=== PATIENT | female | born 1990 | race Caucasian/White ===

== ENCOUNTER 2021-09-19 23:00 | Inpatient (IN) | payer MEDICAID, SELFPAY ==
[2021-09-19 23:23] VITALS: BP 131/63; PULSE 95; RESP 18; TEMP 36.8; O2SAT 98
[2021-09-19 23:29] VITALS: BMI 26.6
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
[2021-09-20 05:04] VITALS: BP 122/75; PULSE 61; RESP 16; TEMP 36.8; O2SAT 98
[2021-09-20] MEDS: thiamine 100 mg Tablet PO (08:48)
[2021-09-20] MEDS: folic acid 1 mg Tablet PO (08:48)
[2021-09-20] MEDS: multivitamin therapeutic Tablet 1 TAB PO (08:49)
--- NOTE | 2021-09-20 09:42 | PC.NURSE ---
PT HAS REMAINED IN BED RESTING WITH EYES CLOSED. DID NOT GET UP TO EAT BREAKFAST. WHEN WAKEN, ANSWERS ASSESSMENT QUESTIONS APPROPRIATELY BUT WITH YES NOT ANSWERS. DENIES AVH OR SI/HI. DENIES ANY NV, TREMORS OR OTHER WITHDRAW SYMPTOMS.
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
[2021-09-20] MEDS: blistex lip oint 7 gm Tube 1 APPLIC TOPICAL (12:06)
--- NOTE | 2021-09-20 12:39 | NPU.GN ---
[facility] Unit Group Topic:Dice Breaker General Mood of Group Patient did not attend group today.
[2021-09-20 14:00] VITALS: BP 116/56; PULSE 62; RESP 17; TEMP 36.7; O2SAT 99
[2021-09-20] MEDS: trazodone 50 mg Tablet 100 MG PO (21:23)
[2021-09-20 21:29] VITALS: RESP 18
[2021-09-21 06:00] VITALS: RESP 16
[2021-09-21] MEDS: multivitamin therapeutic Tablet 1 TAB PO (08:26)
[2021-09-21] MEDS: folic acid 1 mg Tablet PO (08:26)
[2021-09-21] MEDS: thiamine 100 mg Tablet PO (08:26)
--- NOTE | 2021-09-21 10:54 | NPU.GN ---
[facility] Unit Group Topic: Gurinder Diaz General Mood of Group: Patient did not attend group today. Patient was sleeping.
[2021-09-21] MEDS: OLANZapine 5 mg ODT PO (12:17)
[2021-09-21 14:00] VITALS: BP 125/77; PULSE 102; RESP 18; TEMP 36.7; O2SAT 99
[2021-09-21] MEDS: escitalopram 10 mg Tablet PO (15:49)
--- NOTE | 2021-09-21 17:50 | W.PM.NPUPNS ---
Subjective NPU Subjective: Patient presents today reporting that she is doing okay. She reports that she has been working with the treatment team on a plan for getting her to a rehab. She reports that the Seroquel at night has been helpful and she is tolerating restarting Lexapro 10 mg p.o. every morning. We discussed the programs that they contacted and being hopeful that something is available by Friday. Mental Status Exam MSE Comments: This is a well-nourished well-developed -[place] Korean female with reddish hair in hospital scrubs with adequate grooming and eye contact. No abnormal movements except for mild psychomotor retardation. Cooperative with exam in mild distress. Speech was normal rate and volume. Mood described as depressed but slightly hopeful that things might turn around with a rehab plan, affect slightly subdued. Thought process organized. Thought contact: patient denies suicidal or homicidal ideation, there were no delusions reported or noted, patient denied auditory or visual hallucinations. Attention and concentration appeared intact and memory appeared reliable but none were formally tested. Patient is alert and oriented times three. Insight and judgment appear fair and impulse control appears limited. Vitals/I&O/Wt Last Vital Signs Temp 98.1 F 09/21/21 14:00 Pulse 102 H 09/21/21 14:00 Resp 18 09/21/21 14:00 BP 125/77 09/21/21 14:00 Pulse Ox 99 09/21/21 14:00 A&P Assessment and plan (1) Suicidal ideation: Status: Acute (2) History of ADHD: Status: Acute (3) History of posttraumatic stress disorder (PTSD): Status: Acute (4) Major depressive disorder, recurrent: Status: Acute (5) Alcohol use disorder, severe, dependence: Status: Acute Plan his is a 31-year-old female with a long history of mental health issues and trauma with current past alcohol use disorder presents for medication but open to treatment. 1.? Continue current medication.? Started Lexapro in a.m. and Seroquel 100 mg p.o. nightly. 2.? Continue every 15 minute checks for safety. 3.? Encourage individual, group and milieu therapies. 4.? Encourage sober living treatment after discharge at the highest level of care to which he is willing to commit. She is working with treatment team on rehab options. Involuntary Hold Information 96 Hour Hold: 96 Hour Involuntary Admission: No Attestations NPU Medical Necessity Statement*: Inpatient hospitalization is medically necessary and the clinically appropriate intervention at this time. We will monitor medication to make changes as indicated. Likely length of stay 3 to 5 days. Coding Level of Care Code Acute Foreign Legal Consultant for [facility] Fwd Diagnoses Suicidal ideation R45.851 History of ADHD Z86.59 History of posttraumatic stress disorder (PTSD) Z86.59 Major depressive disorder, recurrent F33.9 Alcohol use disorder, severe, dependence F10.20
[2021-09-21] MEDS: quetiapine 100 mg Tablet PO (20:35)
[2021-09-21 20:42] VITALS: BP 120/65; PULSE 68; RESP 18; O2SAT 96
[2021-09-22 05:58] VITALS: BP 108/69; PULSE 64; RESP 16; O2SAT 96
[2021-09-22] MEDS: thiamine 100 mg Tablet PO (08:11)
[2021-09-22] MEDS: escitalopram 10 mg Tablet PO (08:11)
[2021-09-22] MEDS: multivitamin therapeutic Tablet 1 TAB PO (08:11)
[2021-09-22] MEDS: folic acid 1 mg Tablet PO (08:12)
--- NOTE | 2021-09-22 13:20 | W.PM.NPUPNS ---
Subjective NPU Subjective: Patient presents reporting that she is changing her withdrawal really well without any major challenges. She reports that she is continue to focus on a plan to go to rehab and try to get things back on track. She reports an openness to sober living treatment and plan to get her life back in order. She reports it is challenging because of going through withdrawal dealing with some of the psychotic people on the unit but she is focused on her goal of recovery. Mental Status Exam MSE Comments: This is a well-nourished well-developed -Dominican female with reddish hair in hospital scrubs with adequate grooming and eye contact. No abnormal movements except for mild psychomotor retardation. Cooperative with exam in no acute distress. Speech was normal rate and volume. Mood described as better, affect slightly subdued. Thought process organized. Thought contact: patient denies suicidal or homicidal ideation, there were no delusions reported or noted, patient denied auditory or visual hallucinations. Attention and concentration appeared intact and memory appeared reliable but none were formally tested. Patient is alert and oriented times three. Insight and judgment appear fair and impulse control appears limited. Vitals/I&O/Wt Last Vital Signs Temp 98.1 F 09/21/21 14:00 Pulse 64 09/22/21 05:58 Resp 16 09/22/21 05:58 BP 108/69 09/22/21 05:58 Pulse Ox 96 09/22/21 05:58 A&P Assessment and plan (1) Suicidal ideation: Status: Acute (2) History of ADHD: Status: Acute (3) History of posttraumatic stress disorder (PTSD): Status: Acute (4) Major depressive disorder, recurrent: Status: Acute (5) Alcohol use disorder, severe, dependence: Status: Acute Plan This is a 31-year-old female with a long history of mental health issues and trauma with current past alcohol use disorder presents for medication but open to treatment. 1.? Continue current medication.? Started Lexapro in a.m. and Seroquel 100 mg p.o. nightly. 2.? Continue every 15 minute checks for safety. 3.? Encourage individual, group and milieu therapies. 4.? Encourage sober living treatment after discharge at the highest level of care to which he is willing to commit.? She is working with treatment team on rehab options. Involuntary Hold Information 96 Hour Hold: 96 Hour Involuntary Admission: No Attestations NPU Medical Necessity Statement*: Inpatient hospitalization is medically necessary and the clinically appropriate intervention at this time. We will monitor medication to make changes as indicated. Likely length of stay 2-4 days. Coding Level of Care Code Acute Computer Graphics Illustrator for g Fwd Diagnoses Suicidal ideation R45.851 History of ADHD Z86.59 History of posttraumatic stress disorder (PTSD) Z86.59 Major depressive disorder, recurrent F33.9 Alcohol use disorder, severe, dependence F10.20
[2021-09-22 14:00] VITALS: BP 118/68; PULSE 84; RESP 16; TEMP 36.4; O2SAT 98
[2021-09-22] MEDS: hyDROXYzine 25 mg Capsule 50 MG PO (19:07)
--- NOTE | 2021-09-22 19:14 | PC.NURSE ---
PRN Medications Up to nurses station requesting something for anxiety. Administered 50 mg of Vistaril as ordered. Will pass on to material handler 1st shift to monitor the effectiveness of medication.
[2021-09-22] MEDS: quetiapine 100 mg Tablet PO (20:38)
[2021-09-22 20:56] VITALS: BP 123/83; PULSE 87; RESP 17; TEMP 37.2; O2SAT 97
[2021-09-23 02:42] VITALS: BMI 26.6
[2021-09-23 06:00] VITALS: BP 118/78; PULSE 80; RESP 16; TEMP 36.6; O2SAT 98
--- NOTE | 2021-09-23 09:20 | P.NPUPN_ITS ---
Subjective NPU Subjective: Patient presents today reporting that the medication is working well can be expected at this point. She denies any side effects of the medication reports he is eating well and sleeping better with the Seroquel. She continues to endorse a commitment to sober living treatment and a plan to work with the treatment team on Friday towards that end. Mental Status Exam MSE Comments: This is a well-nourished well-developed -Dominican female with reddish hair in hospital scrubs with adequate grooming and eye contact. No abnormal movements except for mild psychomotor retardation. Cooperative with exam in no acute distress. Speech was normal rate and volume. Mood described as better, affect slightly subdued. Thought process organized. Thought contact: patient denies suicidal or homicidal ideation, there were no delusions reported or noted, patient denied auditory or visual hallucinations. Attention and concentration appeared intact and memory appeared reliable but none were formally tested. Patient is alert and oriented times three. Insight and judgment appear fair and impulse control appears limited. Vitals/I&O/Wt Last Vital Signs Temp 97.9 F 09/23/21 06:00 Pulse 80 09/23/21 06:00 Resp 16 09/23/21 06:00 BP 118/78 09/23/21 06:00 Pulse Ox 98 09/23/21 06:00 Weight last 48 hrs Weight 77.281 kg A&P Assessment and plan (1) Suicidal ideation: Status: Acute (2) History of ADHD: Status: Acute (3) History of posttraumatic stress disorder (PTSD): Status: Acute (4) Major depressive disorder, recurrent: Status: Acute (5) Alcohol use disorder, severe, dependence: Status: Acute Plan This is a 31-year-old female with a long history of mental health issues and trauma with current past alcohol use disorder presents for medication but open to treatment. 1.? Continue current medication.? Started Lexapro in a.m. and Seroquel 100 mg p.o. nightly. 2.? Continue every 15 minute checks for safety. 3.? Encourage individual, group and milieu therapies. 4.? Encourage sober living treatment after discharge at the highest level of care to which he is willing to commit.? She is working with treatment team on rehab options.? Involuntary Hold Information 96 Hour Hold: 96 Hour Involuntary Admission: No Attestations NPU Medical Necessity Statement*: Inpatient hospitalization is medically necessary and the clinically appropriate intervention at this time. We will monitor medication to make changes as indicated. Likely length of stay 1-3 days. Coding Level of Care Code Acute Welder Boilermaker for [facility]g Fwd Diagnoses Suicidal ideation R45.851 History of ADHD Z86.59 History of posttraumatic stress disorder (PTSD) Z86.59 Major depressive disorder, recurrent F33.9 Alcohol use disorder, severe, dependence F10.20
[2021-09-23] MEDS: escitalopram 10 mg Tablet PO (09:40)
[2021-09-23] MEDS: thiamine 100 mg Tablet PO (09:40)
[2021-09-23] MEDS: folic acid 1 mg Tablet PO (09:40)
[2021-09-23] MEDS: multivitamin therapeutic Tablet 1 TAB PO (09:40)
[2021-09-23 14:00] VITALS: BP 108/69; PULSE 80; RESP 17; TEMP 36.6; O2SAT 98
[2021-09-23] MEDS: quetiapine 100 mg Tablet PO (20:09)
[2021-09-23 20:10] VITALS: BP 123/85; PULSE 93; RESP 17; TEMP 37.2; O2SAT 98
[2021-09-24 06:00] VITALS: BP 106/56; PULSE 80; RESP 17; TEMP 36.6; O2SAT 98
[2021-09-24] MEDS: multivitamin therapeutic Tablet 1 TAB PO (09:09)
[2021-09-24] MEDS: thiamine 100 mg Tablet PO (09:09)
[2021-09-24] MEDS: folic acid 1 mg Tablet PO (09:09)
[2021-09-24] MEDS: escitalopram 10 mg Tablet PO (09:09)
[2021-09-24] MEDS: hyDROXYzine 25 mg Capsule 50 MG PO (13:27)
[2021-09-24 14:00] VITALS: BP 127/86; PULSE 79; RESP 17; TEMP 36.6; O2SAT 97
[2021-09-24] MEDS: OLANZapine 5 mg ODT PO (15:08)
--- NOTE | 2021-09-24 15:09 | PC.NURSE ---
Addendum entered by Hanh Escobedo RN 09/24/21 16:15: Prn Zyprexa Patient reports less anxiety, zyprexa effective. Original Note: Prn note patent stated she is still feeling very anxious, zyprexa given to help with agitation/anxiety.
--- NOTE | 2021-09-24 16:27 | W.PM.NPUPNS ---
Subjective NPU Subjective: Patient presents today reporting that he started a little cabin fever being in the hospital. He is working with the treatment team on a sober living program that she was tentatively accepted to and she and the social and political studies professor called multiple times without return call. We discussed the likelihood of discharge in the next 48 hours either to that program or an alternate. She continues to endorse optimism and commitment to her recovery. Medications: Medication Review Details: This is a well-nourished well-developed -Burmese female with reddish hair in hospital scrubs with adequate grooming and eye contact. No abnormal movements except for mild psychomotor retardation. Cooperative with exam in no acute distress. Speech was normal rate and volume. Mood described as better, but antsy, affect congruent. Thought process organized. Thought contact: patient denies suicidal or homicidal ideation, there were no delusions reported or noted, patient denied auditory or visual hallucinations. Attention and concentration appeared intact and memory appeared reliable but none were formally tested. Patient is alert and oriented times three. Insight and judgment appear fair and impulse control appears limited. Vitals/I&O/Wt Last Vital Signs Temp 97.8 F 09/24/21 14:00 Pulse 79 09/24/21 14:00 Resp 17 09/24/21 14:00 BP 127/86 09/24/21 14:00 Pulse Ox 97 09/24/21 14:00 Weight last 48 hrs Weight 77.281 kg A&P Assessment and plan (1) Suicidal ideation: Status: Acute (2) History of ADHD: Status: Acute (3) History of posttraumatic stress disorder (PTSD): Status: Acute (4) Major depressive disorder, recurrent: Status: Acute (5) Alcohol use disorder, severe, dependence: Status: Acute Plan This is a 31-year-old female with a long history of mental health issues and trauma with current past alcohol use disorder presents for medication but open to treatment. 1.? Continue current medication.? Started Lexapro in a.m. and Seroquel 100 mg p.o. nightly. 2.? Continue every 15 minute checks for safety. 3.? Encourage individual, group and milieu therapies. 4.? Encourage sober living treatment after discharge at the highest level of care to which he is willing to commit.? She is working with treatment team on rehab options.? Involuntary Hold Information 96 Hour Hold: 96 Hour Involuntary Admission: No Attestations NPU Medical Necessity Statement*: Inpatient hospitalization is medically necessary and the clinically appropriate intervention at this time. We will monitor medication to make changes as indicated. Likely length of stay 1-3 days. Coding Level of Care Code Acute Rib Builder for [facility] Fwd Diagnoses Suicidal ideation R45.851 History of ADHD Z86.59 History of posttraumatic stress disorder (PTSD) Z86.59 Major depressive disorder, recurrent F33.9 Alcohol use disorder, severe, dependence F10.20
--- NOTE | 2021-09-24 16:32 | PC.SOCIAL ---
Patient did not attend group.
[2021-09-24 20:43] VITALS: BP 141/89; PULSE 88; RESP 19; TEMP 36.6; O2SAT 99
[2021-09-24] MEDS: quetiapine 100 mg Tablet PO (22:12)
[2021-09-25 06:00] VITALS: BP 95/55; PULSE 84; RESP 16; TEMP 36.5; O2SAT 98
[2021-09-25] MEDS: multivitamin therapeutic Tablet 1 TAB PO (09:53)
[2021-09-25] MEDS: escitalopram 10 mg Tablet PO (09:53)
[2021-09-25] MEDS: thiamine 100 mg Tablet PO (09:53)
[2021-09-25] MEDS: folic acid 1 mg Tablet PO (09:53)
[2021-09-25] MEDS: hyDROXYzine 25 mg Capsule 50 MG PO (11:33)
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
[2021-09-25 12:33] VITALS: BP 95/55; PULSE 84; RESP 16; TEMP 36.5; O2SAT 98
== END 2021-09-25 12:47 | disposition home or self-care (01) | DRG 885 ==
PROVIDERS: Admitting Provider Psychiatry & Neurology Psychiatry; Visit Provider Psychiatry & Neurology Psychiatry
DX: F33.9 Major depressive disorder, recurrent, unspecified (principal); R45.851 Suicidal ideations; F90.9 Attention-deficit hyperactivity disorder, unspecified type; F10.20 Alcohol dependence, uncomplicated; F43.10 Post-traumatic stress disorder, unspecified; F17.210 Nicotine dependence, cigarettes, uncomplicated; F12.90 Cannabis use, unspecified, uncomplicated
CPT/HCPCS: 97165